=== PATIENT | female | born 1940 | race Caucasian/White ===

== ENCOUNTER 2025-07-22 11:44 | Emergency (ER) | payer MEDICARE, OTHER | END 2025-07-22 14:08 | disposition home or self-care (01) | LOC: ERS 11:44 | DX: T82.590A Other mechanical complication of surgically created arteriovenous fistula, initial encounter (principal); I50.32 Chronic diastolic (congestive) heart failure; E11.22 Type 2 diabetes mellitus with diabetic chronic kidney disease; N18.6 End stage renal disease; I48.91 Unspecified atrial fibrillation; K21.9 Gastro-esophageal reflux disease without esophagitis; Z79.899 Other long term (current) drug therapy; Z79.01 Long term (current) use of anticoagulants; Z79.4 Long term (current) use of insulin | CPT/HCPCS: 99284 ==